=== PATIENT | female | born 1960 | race Caucasian/White ===

== ENCOUNTER 2017-02-15 15:24 | Emergency (ER) | payer BC ==
[2017-02-15] MEDS ORDERED: methylPREDNISolone SUCCINATE 125 MG/2 ML VIAL IVP STA (15:47)
[2017-02-15] MEDS ORDERED: ALBUTEROL NEB 2.5 MG/3 ML INH STA ×2 (15:47→16:46)
[2017-02-15] MEDS ORDERED: ALBUTEROL NEB 2.5 MG/3 ML INH ONE ×2 (15:56→17:03)
[2017-02-15] MEDS ORDERED: methylPREDNISolone SUCCINATE 125 MG/2 ML VIAL IVP ONE (16:08)
[2017-02-15 16:18] LABS: BASOPHILS % (AUTO) 0.1 %; EOSINOPHILS % (AUTO) 0.2 %; HCT - HEMATOCRIT 41.2 % (37.0-47.0); HGB - HEMOGLOBIN 14.1 g/dL (12.0-16.0); LYMPHOCYTES # (AUTO) 0.3 10^3/uL (1.5-3.5); LYMPHOCYTES % (AUTO) 4.1 %; MEAN CORPUSCULAR HEMOGLOBIN 34.5 pg (27.0-31.0); MEAN CORPUSCULAR HGB CONC 34.3 g/dL (32.0-36.0); MEAN CORPUSCULAR VOLUME 100.6 fL (81.0-99.0); MEAN PLATELET VOLUME 9.1 fL (7.9-10.8); MONOCYTES # (AUTO) 0.2 10^3/uL (0.0-1.0); MONOCYTES % (AUTO) 2.5 %; NEUTROPHILS # (AUTO) 5.8 10^3/uL (1.5-6.6); NEUTROPHILS % (AUTO) 93.1 %; RED CELL DISTRIBUTION WIDTH 12.8 % (12.0-15.0); UNCORRECTED WHITE BLOOD COUNT 6.2 x10^3/uL; WHITE BLOOD COUNT 6.2 x10^3/uL (4.8-10.8)
[2017-02-15 16:29] LABS: ALBUMIN/GLOBULIN RATIO 1.7 (1.0-2.2); BILIRUBIN,TOTAL 0.8 mg/dL (0.2-1.0); CALCIUM 9.1 mg/dL (8.5-10.3); CREATININE 0.8 mg/dL (0.4-1.0); POTASSIUM 3.4 mmol/L (3.5-5.0); TOTAL PROTEIN 6.9 g/dL (6.7-8.2)
--- NOTE | 2017-02-15 16:44 | XRAY Preliminary Report ---
Exam: XR Chest 2 View PA/LAT IMPRESSION: Normal 2-view chest radiography. [facility] SITE ID: [id number]
--- NOTE | 2017-02-15 16:51 | XRAY Report ---
EXAM: CHEST RADIOGRAPHY EXAM DATE: 02/15/2017 04:26 PM. CLINICAL HISTORY: Cough, wheezing, shortness of breath. COMPARISON: 03/29/2016. TECHNIQUE: 2 views. FINDINGS: Lungs/Pleura: No focal opacities evident. No pleural effusion. No pneumothorax. Normal volumes. Mediastinum: Heart and mediastinal contours are unremarkable. Other: None. IMPRESSION: Normal 2-view chest radiography. [facility] Referring Provider Line: [phone] SITE ID: [id number]
[2017-02-15 18:08] VITALS: BP 141/67
--- NOTE | 2017-02-15 18:10 | ED Physician Documentation ---
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 No: Fever, Chest pain / discomfort, Palpitations, Diaphoresis, Bilateral edema Similar symptoms before: Diagnosis (asthma) Recently seen: Not recently seen Review of Systems Constitutional: denies: Fever, Chills Respiratory: reports: Dyspnea, Wheezing GI: denies: Abdominal Pain, Nausea, Vomiting, Diarrhea Skin: denies: Rash Musculoskeletal: denies: Neck pain, Back pain Neurologic: denies: Focal weakness, Numbness, Headache PD PAST MEDICAL HISTORY - Past Medical History Cardiovascular: None Respiratory: Asthma Neuro: None Endocrine/Autoimmune: None GI: None : None HEENT: None Psych: None Musculoskeletal: None Derm: None - Past Surgical History 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 - Present Medications Home Medications: Ambulatory Orders Medication Instructions Recorded Confirmed Fluticasone/Salmeterol [Advair 1 each IH BID 08/31/13 02/15/17 500-50 Diskus] Montelukast [Singulair] 10 mg PO QPM 08/31/13 02/15/17 Ipratropium/Albuterol [Duoneb] 3 ml INH Q6H PRN #24 neb 03/26/16 02/15/17 Prednisone 60 mg PO DAILY #15 tablet 02/15/17 - Allergies Allergies/Adverse Reactions: Allergies Allergy/AdvReac Type Severity Reaction Status Date / Time iodine Allergy Severe soa Verified 02/15/17 16:11 shellfish derived Allergy Severe soa Verified 02/15/17 16:11 - Social History Does the pt smoke?: No Smoking Status: Former smoker Does the pt drink ETOH?: Yes ETOH Use: Wine Does the pt have substance abuse?: No - Immunizations Immunizations are current?: No Immunizations: TDAP >10years/unknown - POLST Patient has POLST: No PD ED PE NORMAL - Vitals Vital signs reviewed: Yes - General General: Alert and oriented X 3, No acute distress, Well developed/nourished - HEENT HEENT: PERRL, Moist mucous membranes - Neck Neck: Supple, no meningeal sign - Cardiac Cardiac: RRR, Strong equal pulses - Respiratory Respiratory: No respiratory distress, Other (Audible wheezing. Decreased breath sounds) - Abdomen Abdomen: Soft, Non tender, Non distended - Derm Derm: Warm and dry - Extremities Extremities: No edema, No calf tenderness / cord - Neuro Neuro: Alert and oriented X 3, No motor deficit, No sensory deficit - Psych Psych: Normal mood, Normal affect Results - Vitals Vitals: Vital Signs - 24 hr 02/15/17 02/15/17 02/15/17 15:26 15:47 17:15 Temperature 36.9 C Heart Rate 96 84 97 Respiratory 29 H 18 18 Rate Blood Pressure 164/102 H O2 Saturation 90 L 02/15/17 02/15/17 02/15/17 17:58 18:07 18:15 Temperature Heart Rate 86 101 H 96 Respiratory 18 18 20 Rate Blood Pressure 123/106 H 141/67 H 141/67 H O2 Saturation 93 95 93 Oxygen O2 Source Room air - Labs Labs: Laboratory Tests 02/15/17 02/15/17 16:04 16:04 WBC 6.2 RBC 4.10 L Hgb 14.1 Hct 41.2 MCV 100.6 H MCH 34.5 H MCHC 34.3 RDW 12.8 Plt Count 109 L MPV 9.1 Neut # 5.8 Lymph # 0.3 L [place] # 0.2 Eos # 0.0 Baso # 0.0 Absolute Nucleated RBC 0.00 Nucleated RBCs 0.0 Sodium 140 Potassium 3.4 L Chloride 103 Carbon Dioxide 26 Anion Gap 11.0 BUN 13 Creatinine 0.8 Estimated GFR (MDRD) 74 L Glucose 137 H Calcium 9.1 Total Bilirubin 0.8 AST 42 ALT 50 Alkaline Phosphatase 84 Total Protein 6.9 Albumin 4.3 Globulin 2.6 Albumin/Globulin Ratio 1.7 Lipase 14 L - Rads (name of study) cxr Radiology: Prelim report reviewed, EMP read contemporaneously, See rad report ( Normal 2-view chest radiography. ) PD MEDICAL DECISION MAKING - ED course Complexity details: reviewed results, re-evaluated patient, considered differential, d/w patient, d/w family ED course: Patient is a 56-year-old female who presents to the emergency department with what appears to be an asthma flare. She took steroids prior to arrival, but was given additional steroids here. Improved greatly with nebulizer treatment. Audible wheezing resolved. No hypoxia. 96-97% on room air. She would like to try going home and see how she progresses. is comfortable taking her home. We did discuss observation, but patient and her both declined this. Patient counseled regarding signs and symptoms for which I believe and urgent re-evaluation would be necessary. Patient with good understanding of and agreement to plan and is comfortable going home at this time This document was made in part using voice recognition software. While efforts are made to proofread this document, sound alike and grammatical errors may occur. Departure - Departure Disposition: 01 Home, Self Care Clinical Impression: Asthma Qualifiers: Asthma severity: unspecified severity Asthma complication type: with acute exacerbation Qualified Code(s): J45.901 - Unspecified asthma with (acute) exacerbation Condition: Good Instructions: ED Reactive Airway Disease Follow-Up: Darcy Patricio ARNP [Primary Care Provider] - Within 1 week Prescriptions: Prednisone 60 mg PO DAILY #15 tablet Comments: Return if you worsen. Forms: Activity restrictions Discharge Date/Time: 02/15/17 18:23
== END 2017-02-15 18:23 | disposition home or self-care (01) ==
LOC: ED 15:24
DX: J45.901 Unspecified asthma with (acute) exacerbation (principal); Z87.891 Personal history of nicotine dependence
CPT/HCPCS: 36415; 71020; 80053; 83690; 85025; 94640; 96374; 99283; J7613

== ENCOUNTER 2017-07-13 16:46 | Outpatient (CLI) | payer BC | END 2017-07-13 16:47 | disposition critical access hospital (66) | LOC: EMS 16:46 | PROVIDERS: ATTEND Surgery | DX: R06.02 Shortness of breath (principal); R05 Cough ==

== ENCOUNTER 2017-07-13 17:09 | Emergency (ER) | payer BC ==
--- NOTE | 2017-07-13 17:18 | ED Physician Documentation ---
PD HPI DYSPNEA - Stated complaint Stated Complaint: SOA - Chief complaint Chief Complaint: Resp - History obtained from History obtained from: Patient - History of Present Illness Timing - onset: How many days ago (1-2) Timing - onset during: Light activity Timing - duration: Days Inciting event(s): URI (some cough) Improved by: Inhaler/neb (but not this afternoon) Associated symptoms: Cough, Wheezing, Chest pain / discomfort (with cough). No : Fever, Palpitations, Bilateral edema Similar symptoms before: Diagnosis (asthma) Review of Systems Ten Systems: 10 systems reviewed and negative Constitutional: reports: Myalgias. denies: Fever, Chills Nose: reports: Congestion Cardiac: reports: Chest pain / pressure. 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 - Present Medications Home Medications: Ambulatory Orders Medication Instructions Recorded Confirmed Fluticasone/Salmeterol [Advair 1 each IH BID 08/31/13 07/14/17 500-50 Diskus] Montelukast [Singulair] 10 mg PO QPM 08/31/13 07/14/17 Ipratropium/Albuterol [Duoneb] 3 ml INH Q6H PRN #24 neb 03/26/16 07/14/17 Cephalexin [Keflex] 500 mg PO TID #18 capsule 07/13/17 07/14/17 Dexamethasone [Decadron] 4 mg PO BID #10 tablet 07/13/17 07/14/17 Ipratropium [Atrovent] 0.5 mg INH Q6H #30 neb 07/13/17 07/14/17 Magnesium Oxide [Mag Ox] 400 mg PO BID #20 tablet 07/13/17 07/14/17 Prednisone 20 mg PO DAILY 07/13/17 07/14/17 - Allergies Allergies/Adverse Reactions: Allergies Allergy/AdvReac Type Severity Reaction Status Date / Time iodine Allergy Severe soa Verified 07/14/17 06:18 shellfish derived Allergy Severe soa Verified 07/14/17 06:18 - Social History Does the pt smoke?: No Smoking Status: Former smoker Does the pt drink ETOH?: Yes Does the pt have substance abuse?: No - Immunizations Immunizations are current?: No Immunizations: TDAP >10years/unknown - POLST Patient has POLST: No PD ED PE NORMAL - Vitals Vital signs reviewed: Yes - General General: Alert and oriented X 3, Well developed/nourished, Other (working breathing but can talk sentences) - Cardiac Cardiac: No murmur. No: RRR (tachycardic but regular) - Respiratory Respiratory: No: Clear bilaterally (wheezing and tight) - Abdomen Abdomen: Soft, Non tender - Back Back: No CVA TTP - Derm Derm: Normal color, Warm and dry, No rash - Extremities Extremities: No deformity, No tenderness to palpate, No edema, No calf tenderness / cord - Neuro Neuro: Alert and oriented X 3, No motor deficit, Normal speech - Psych Psych: Normal mood Results - Vitals Vitals: Vital Signs - 24 hr 07/13/17 07/13/17 07/13/17 17:12 18:33 18:35 Temperature 36.9 C Heart Rate 177 H 99 98 Respiratory 24 18 17 Rate Blood Pressure 157/88 H 144/89 H O2 Saturation 97 96 07/13/17 07/13/17 19:20 19:51 Temperature Heart Rate 89 96 Respiratory 18 20 Rate Blood Pressure 143/90 H O2 Saturation 94 Oxygen O2 Source Room air - Labs Labs: Laboratory Tests 07/13/17 07/13/17 18:02 18:02 WBC 8.8 RBC 4.11 L Hgb 14.1 Hct 41.4 MCV 100.8 H MCH 34.4 H MCHC 34.1 RDW 12.5 Plt Count 111 L MPV 8.4 Neut # 8.2 H Lymph # 0.3 L [place] # 0.3 Eos # 0.1 Baso # 0.1 Absolute Nucleated RBC 0.00 Nucleated RBC % 0.0 Sodium 140 Potassium 3.3 L Chloride 105 Carbon Dioxide 25 Anion Gap 10.0 BUN 17 Creatinine 0.9 Estimated GFR (MDRD) 65 L Glucose 170 H Calcium 8.8 Total Bilirubin 0.5 AST 33 ALT 31 Alkaline Phosphatase 90 Total Protein 6.6 L Albumin 4.1 Globulin 2.5 Albumin/Globulin Ratio 1.6 Lipase 24 - Rads (name of study) chest Radiology: Prelim report reviewed (no infiltrates) PD MEDICAL DECISION MAKING - ED course Complexity details: reviewed old records, reviewed results, re-evaluated patient (improved with several meds and she prefers trying to go home. has nebulizer there.), considered differential, d/w patient Departure - Departure Disposition: Home, Self Care Clinical Impression: Upper respiratory tract infection Qualifiers: URI type: unspecified URI Qualified Code(s): J06.9 - Acute upper respiratory infection, unspecified Exacerbation of asthma Qualifiers: Asthma severity: mild Asthma persistence: intermittent Qualified Code(s): J45.21 - Mild intermittent asthma with (acute) exacerbation Condition: Stable Record reviewed to determine appropriate education?: Yes Instructions: ED Upper Resp Infec Abx Tx, ED Bronchitis Asthmatic Follow-Up: Darcy Patricio ARNP [Primary Care Provider] - Prescriptions: Cephalexin [Keflex] 500 mg PO TID #18 capsule Dexamethasone [Decadron] 4 mg PO BID #10 tablet Ipratropium [Atrovent] 0.5 mg INH Q6H #30 neb Magnesium Oxide [Mag Ox] 400 mg PO BID #20 tablet Comments: Continue your albuterol nebulizers at home 4 times a day and can add the ipratropium (Atrovent) with it as well. Additionally he can add extra albuterol and nebulizers if needed for wheezes. Use the Decadron steroid daily for 5 more days. Take cephalexin antibiotic for concern of bacterial infection as directed. Use the magnesium as a smooth muscle relaxant twice daily for the next week as well to see if it's complements with your inhalers to reduce the wheezing. Return if worse again. Recheck with your primary care if not improved over the next several days. Discharge Date/Time: 07/13/17 19:57
[2017-07-13] MEDS ORDERED: KETOROLAC 60 MG/2 ML VIAL IVP STA (17:55)
[2017-07-13] MEDS ORDERED: DEXAMETHASONE 10 MG/ML VIAL IVP STA (17:55)
[2017-07-13] MEDS ORDERED: IPRATROPIUM/ALBUTEROL 3 ML NEB INH STA (17:55)
[2017-07-13] MEDS ORDERED: MAGNESIUM SULFATE 2 GRAM 2 GM/50 ML BAG IV ONE ×2 (17:55→18:21)
[2017-07-13] MEDS ORDERED: KETOROLAC 60 MG/2 ML VIAL ONE (18:20)
[2017-07-13] MEDS ORDERED: DEXAMETHASONE 10 MG/ML VIAL ONE (18:20)
[2017-07-13] MEDS ORDERED: SODIUM CHLORIDE FLUSH 0.9% 10 ML SYRINGE IVP ONE (18:22)
[2017-07-13 18:27] LABS: ALBUMIN/GLOBULIN RATIO 1.6 (1.0-2.2); BILIRUBIN,TOTAL 0.5 mg/dL (0.2-1.0); CALCIUM 8.8 mg/dL (8.5-10.3); CREATININE 0.9 mg/dL (0.4-1.0); POTASSIUM 3.3 mmol/L (3.5-5.0); TOTAL PROTEIN 6.6 g/dL (6.7-8.2)
[2017-07-13 18:35] LABS: BASOPHILS # (AUTO) 0.1 10^3/uL (0.0-0.1); BASOPHILS % (AUTO) 0.7 %; EOSINOPHILS # (AUTO) 0.1 10^3/uL (0.0-0.7); EOSINOPHILS % (AUTO) 0.6 %; HCT - HEMATOCRIT 41.4 % (37.0-47.0); HGB - HEMOGLOBIN 14.1 g/dL (12.0-16.0); LYMPHOCYTES # (AUTO) 0.3 10^3/uL (1.5-3.5); LYMPHOCYTES % (AUTO) 3.3 %; MEAN CORPUSCULAR HEMOGLOBIN 34.4 pg (27.0-31.0); MEAN CORPUSCULAR HGB CONC 34.1 g/dL (32.0-36.0); MEAN CORPUSCULAR VOLUME 100.8 fL (81.0-99.0); MEAN PLATELET VOLUME 8.4 fL (7.9-10.8); MONOCYTES # (AUTO) 0.3 10^3/uL (0.0-1.0); MONOCYTES % (AUTO) 2.9 %; NEUTROPHILS # (AUTO) 8.2 10^3/uL (1.5-6.6); NEUTROPHILS % (AUTO) 92.5 %; RED BLOOD COUNT 4.11 10^6/uL (4.20-5.40); RED CELL DISTRIBUTION WIDTH 12.5 % (12.0-15.0); UNCORRECTED WHITE BLOOD COUNT 8.8 x10^3/uL; WHITE BLOOD COUNT 8.8 x10^3/uL (4.8-10.8)
[2017-07-13] MEDS ORDERED: IPRATROPIUM/ALBUTEROL 3 ML NEB INH ONE (18:39)
[2017-07-13] MEDS ORDERED: ALBUTEROL NEB 2.5 MG/3 ML INH STA (19:10)
[2017-07-13] MEDS ORDERED: ALBUTEROL NEB 2.5 MG/3 ML INH ONE (19:25)
--- NOTE | 2017-07-13 19:26 | XRAY Preliminary Report ---
Exam: XR CHEST 2 VIEW PA/LAT IMPRESSION: Normal 2-view chest radiography. [facility] SITE ID: [id number]
--- NOTE | 2017-07-13 19:30 | XRAY Report ---
EXAM: CHEST RADIOGRAPHY EXAM DATE: 07/13/2017 07:11 PM. CLINICAL HISTORY: Wheeze and chest pain. COMPARISON: 02/15/2017. TECHNIQUE: 2 views. FINDINGS: Lungs/Pleura: No focal opacities evident. No pleural effusion. No pneumothorax. Normal volumes. Mediastinum: Heart and mediastinal contours are unremarkable. Other: None. IMPRESSION: Normal 2-view chest radiography. [facility] Referring Provider Line: [phone] SITE ID: [id number]
[2017-07-13] MEDS ORDERED: BENZONATATE 100 MG CAPSULE PO STA (19:38)
[2017-07-13] MEDS ORDERED: BENZONATATE 100 MG CAPSULE PO ONE (19:47)
[2017-07-13 19:52] VITALS: BP 143/90
== END 2017-07-13 19:57 | disposition home or self-care (01) ==
LOC: EDUNIT# → ED 17:09
DX: J06.9 Acute upper respiratory infection, unspecified (principal); J45.21 Mild intermittent asthma with (acute) exacerbation; Z87.891 Personal history of nicotine dependence
CPT/HCPCS: 36415; 71020; 80053; 83690; 85025; 94640; 96365; 96375; 99284; A9270; J7613; J7620; 94664

== ENCOUNTER 2017-07-14 05:46 | Outpatient (CLI) | payer BC | END 2017-07-14 05:47 | disposition critical access hospital (66) | LOC: EMS 05:46 | PROVIDERS: ATTEND Surgery | DX: R06.00 Dyspnea, unspecified (principal) | CPT/HCPCS: A0425; A0427 ==

== ENCOUNTER 2017-07-14 06:13 | Emergency (ER) | payer BC ==
[2017-07-14] MEDS ORDERED: ALBUTEROL NEB 2.5 MG/3 ML INH STA (06:26)
[2017-07-14] MEDS ORDERED: ALBUTEROL NEB 2.5 MG/3 ML INH ONE (06:32)
[2017-07-14] MEDS ORDERED: DEXAMETHASONE 10 MG/ML VIAL IVP STA (07:26)
[2017-07-14] MEDS ORDERED: cefTRIAXone 1 GM in SODIUM CHLORIDE 0.9% MINIBAG 100 ML IV STA (07:26)
[2017-07-14] MEDS ORDERED: SODIUM CHLORIDE 0.9% 1,000 ML IV ONE (07:26)
--- NOTE | 2017-07-14 07:29 | ED Physician Documentation ---
PD HPI DYSPNEA - Stated complaint Stated Complaint: SOA - Chief complaint Chief Complaint: Resp - History obtained from History obtained from: Patient, EMS - History of Present Illness Timing - onset: How many days ago (2) Timing - onset during: Rest Timing - duration: Days (2) Timing - details: Gradual onset, Still present Inciting event(s): URI Improved by: O2, Inhaler/neb Worsened by: Exertion, Coughing Associated symptoms: Cough, Wheezing, Anxiety Similar symptoms before: Diagnosis (asthma exacerbation) Recently seen: Emergency Dept (Seen here last night.) - Additional information Additional information: 56-year-old female seen in the emergency department last night for an asthma exacerbation was not able to fill her medicines last night and awoke about 5 AM with acute shortness of breath and this was bad enough that she drove herself back down to the medic station and was transported the hospital by paramedics.She received a DuoNeb treatment in route with some improvement.She has had exacerbation of asthma previously and required admission to the hospital last year. Last night in the emergency department she felt that she had a marked improvement with the use of magnesium given by vein. 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 - Present Medications Home Medications: Ambulatory Orders Medication Instructions Recorded Confirmed Fluticasone/Salmeterol [Advair 1 each IH BID 08/31/13 07/14/17 500-50 Diskus] Montelukast [Singulair] 10 mg PO QPM 08/31/13 07/14/17 Ipratropium/Albuterol [Duoneb] 3 ml INH Q6H PRN #24 neb 03/26/16 07/14/17 Cephalexin [Keflex] 500 mg PO TID #18 capsule 07/13/17 07/14/17 Dexamethasone [Decadron] 4 mg PO BID #10 tablet 07/13/17 07/14/17 Ipratropium [Atrovent] 0.5 mg INH Q6H #30 neb 07/13/17 07/14/17 Magnesium Oxide [Mag Ox] 400 mg PO BID #20 tablet 07/13/17 07/14/17 Prednisone 20 mg PO DAILY 07/13/17 07/14/17 - Allergies Allergies/Adverse Reactions: Allergies Allergy/AdvReac Type Severity Reaction Status Date / Time iodine Allergy Severe soa Verified 07/14/17 06:18 shellfish derived Allergy Severe soa Verified 07/14/17 06:18 - Social History Does the pt smoke?: No Smoking Status: Never smoker Does the pt drink ETOH?: Yes Does the pt have substance abuse?: No - Immunizations Immunizations are current?: No Immunizations: TDAP >10years/unknown - POLST Patient has POLST: No PD ED PE NORMAL - Vitals Vital signs reviewed: Yes (Tachycardic and hypertensive) - General General: Alert and oriented X 3, Well developed/nourished, Other (The patient has an audible wheeze and is tachypneic she is alert and cooperative.) - HEENT HEENT: Atraumatic, PERRL, EOMI, Other (The right TM is markedly inflamed with rounding of the landmarks the left is with minimal inflammation.) - Neck Neck: Supple, no meningeal sign, No bony TTP - Cardiac Cardiac: No murmur, Other (Tachycardic) - Respiratory Respiratory: Other (Tachypneic with audible wheeze and diminished breath sounds bilaterally with scattered wheezes.) - Abdomen Abdomen: Soft, Non tender - Back Back: No CVA TTP, No spinal TTP - Derm Derm: Normal color, Warm and dry, No rash - Extremities Extremities: No deformity, No edema - Neuro Neuro: No motor deficit, No sensory deficit - Psych Psych: Normal mood, Normal affect Results - Vitals Vitals: Vital Signs - 24 hr 07/14/17 07/14/17 07/14/17 06:16 06:42 09:30 Temperature 37.3 C 36.9 C Heart Rate 133 H 122 H 109 H Respiratory 22 20 17 Rate Blood Pressure 169/100 H 165/85 H 148/86 H O2 Saturation 93 97 97 07/14/17 10:42 Temperature Heart Rate 107 H Respiratory 22 Rate Blood Pressure O2 Saturation 95 Oxygen O2 Source Room air - Labs Labs: Laboratory Tests 07/14/17 07/14/17 07/14/17 08:25 08:25 08:25 WBC 7.7 RBC 3.98 L Hgb 13.8 Hct 39.4 MCV 99.0 MCH 34.8 H MCHC 35.1 RDW 12.5 Plt Count 117 L MPV 8.4 Neut # 7.5 H Lymph # 0.2 L [place] # 0.1 Eos # 0.0 Baso # 0.0 Absolute Nucleated RBC 0.00 Nucleated RBC % 0.0 Sodium 141 Potassium 3.2 L Chloride 105 Carbon Dioxide 23 Anion Gap 13.0 BUN 12 Creatinine 0.8 Estimated GFR (MDRD) 74 L Glucose 183 H Calcium 9.4 Total Bilirubin 0.6 AST 25 ALT 32 Alkaline Phosphatase 86 Troponin I < 0.04 B-Natriuretic Peptide Total Protein 6.6 L Albumin 4.0 Globulin 2.6 Albumin/Globulin Ratio 1.5 Lipase 18 L 07/14/17 08:25 WBC RBC Hgb Hct MCV MCH MCHC RDW Plt Count MPV Neut # Lymph # [place] # Eos # Baso # Absolute Nucleated RBC Nucleated RBC % Sodium Potassium Chloride Carbon Dioxide Anion Gap BUN Creatinine Estimated GFR (MDRD) Glucose Calcium Total Bilirubin AST ALT Alkaline Phosphatase Troponin I B-Natriuretic Peptide 133 H Total Protein Albumin Globulin Albumin/Globulin Ratio Lipase Procedures - IVC sono (time) 0725 Bedside IVC sono: IVC measures (cm) (1.2), IVC collapsed c insp (cm) (complete) , Dehydration PD MEDICAL DECISION MAKING - ED course Complexity details: reviewed old records, reviewed results, re-evaluated patient , considered differential, d/w patient, d/w family ED course: 56-year-old female with exacerbation of asthma was treated in the emergency department last night and released with improvement and has worsening of symptoms 8 hours later. She is found in the emergency department this morning to be tachypneic tachycardic and hypoxic and she is given a DuoNeb treatment and placed on the oxygen. She is found to be dehydrated and has otitis on examination. She is given in addition dexamethasone intravenously a liter of saline and 1 g of Rocephin. She is previously required admission into the hospital and spent about 5 days in the hospital on a similar visit with a repeat visit to the emergency department on the same day. Today she feels confident she will improve further. Departure - Departure Disposition: 01 Home, Self Care Clinical Impression: Acute bronchitis with COPD, Dehydration Otitis media Qualifiers: Otitis media type: suppurative Chronicity: acute Laterality: bilateral Recurrence: not specified as recurrent Spontaneous tympanic membrane rupture: without spontaneous rupture Qualified Code(s): H66.003 - Acute suppurative otitis media without spontaneous rupture of ear drum, bilateral Instructions: ED Bronchitis Asthmatic, ED Dehydration, ED Otitis Media Acute Adult Follow-Up: Darcy Patricio ARNP [Primary Care Provider] - Comments: Fill the prescriptions given to you yesterday by Dr. Beavers. Discharge Date/Time: 07/14/17 11:13
[2017-07-14] MEDS ORDERED: cefTRIAXone 1 GM VIAL ONE (08:33)
[2017-07-14] MEDS ORDERED: DEXAMETHASONE 10 MG/ML VIAL ONE (08:33)
[2017-07-14 08:34] LABS: BASOPHILS % (AUTO) 0.1 %; HCT - HEMATOCRIT 39.4 % (37.0-47.0); HGB - HEMOGLOBIN 13.8 g/dL (12.0-16.0); LYMPHOCYTES # (AUTO) 0.2 10^3/uL (1.5-3.5); LYMPHOCYTES % (AUTO) 2.3 %; MEAN CORPUSCULAR HEMOGLOBIN 34.8 pg (27.0-31.0); MEAN CORPUSCULAR HGB CONC 35.1 g/dL (32.0-36.0); MEAN PLATELET VOLUME 8.4 fL (7.9-10.8); MONOCYTES # (AUTO) 0.1 10^3/uL (0.0-1.0); MONOCYTES % (AUTO) 1.3 %; NEUTROPHILS # (AUTO) 7.5 10^3/uL (1.5-6.6); NEUTROPHILS % (AUTO) 96.3 %; RED BLOOD COUNT 3.98 10^6/uL (4.20-5.40); RED CELL DISTRIBUTION WIDTH 12.5 % (12.0-15.0); UNCORRECTED WHITE BLOOD COUNT 7.7 x10^3/uL; WHITE BLOOD COUNT 7.7 x10^3/uL (4.8-10.8)
[2017-07-14] MEDS ORDERED: SODIUM CHLORIDE FLUSH 0.9% 10 ML SYRINGE IVP ONE ×2 (08:38)
[2017-07-14 08:47] LABS: ALBUMIN/GLOBULIN RATIO 1.5 (1.0-2.2); BILIRUBIN,TOTAL 0.6 mg/dL (0.2-1.0); CALCIUM 9.4 mg/dL (8.5-10.3); CREATININE 0.8 mg/dL (0.4-1.0); POTASSIUM 3.2 mmol/L (3.5-5.0); TOTAL PROTEIN 6.6 g/dL (6.7-8.2)
[2017-07-14 09:31] VITALS: BP 148/86
[2017-07-14] MEDS ORDERED: POTASSIUM BICARB 25 MEQ TABLET PO STA (09:38)
[2017-07-14] MEDS ORDERED: POTASSIUM BICARB 25 MEQ TABLET PO ONE (10:04)
== END 2017-07-14 11:13 | disposition home or self-care (01) ==
LOC: EDUNIT# → ED 06:13
DX: J20.9 Acute bronchitis, unspecified (principal); J44.0 Chronic obstructive pulmonary disease with (acute) lower respiratory infection; E86.0 Dehydration; H66.003 Acute suppurative otitis media without spontaneous rupture of ear drum, bilateral; R09.02 Hypoxemia; R00.0 Tachycardia, unspecified; R06.82 Tachypnea, not elsewhere classified
CPT/HCPCS: 36415; 80053; 83690; 83880; 84484; 85025; 94640; 96361; 96365; 96375; 99284; A9270; J7613

== ENCOUNTER 2017-10-06 08:37 | Outpatient (CLI) | payer BC ==
[2017-10-06 09:31] LABS: BASOPHILS % (AUTO) 1.1 %; EOSINOPHILS # (AUTO) 0.1 10^3/uL (0.0-0.7); HGB - HEMOGLOBIN 14.5 g/dL (12.0-16.0); LYMPHOCYTES # (AUTO) 0.9 10^3/uL (1.5-3.5); LYMPHOCYTES % (AUTO) 32.8 %; MEAN CORPUSCULAR HEMOGLOBIN 34.6 pg (27.0-31.0); MEAN CORPUSCULAR HGB CONC 34.7 g/dL (32.0-36.0); MEAN CORPUSCULAR VOLUME 99.7 fL (81.0-99.0); MONOCYTES # (AUTO) 0.2 10^3/uL (0.0-1.0); MONOCYTES % (AUTO) 7.8 %; NEUTROPHILS # (AUTO) 1.6 10^3/uL (1.5-6.6); NEUTROPHILS % (AUTO) 56.3 %; PLT - PLATELET COUNT 120 10^3/uL (130-450); WHITE BLOOD COUNT 2.8 x10^3/uL (4.8-10.8)
[2017-10-06 09:39] LABS: INR 0.9 (0.8-1.2)
[2017-10-06 09:48] LABS: HB2 TOTAL 15.8 g/dL; HEMOGLOBIN A1C 0.42 g/dL; HEMOGLOBIN A1C % 4.6 % (4.6-6.2)
[2017-10-06 09:51] LABS: % IRON SATURATION 25 % (20-50); ALBUMIN 4.4 g/dL (3.2-5.5); ALBUMIN/GLOBULIN RATIO 1.8 (1.0-2.2); ALKALINE PHOSPHATASE 71 IU/L (42-121); ALT ALANINE AMINOTRANSFERASE 25 IU/L (10-60); AST ASPARTATE AMINOTRANSFERASE 27 IU/L (10-42); BILIRUBIN,TOTAL 0.4 mg/dL (0.2-1.0); BUN - BLOOD UREA NITROGEN 13 mg/dL (6-20); CALCIUM 9.1 mg/dL (8.5-10.3); CARBON DIOXIDE - CO2 24 mmol/L (21-32); CHLORIDE 108 mmol/L (101-111); CHOL/HDL RATIO 3.6 (<4.4); CHOLESTEROL 275 mg/dL; CREATININE 0.8 mg/dL (0.4-1.0); GFR - MDRD 74 (>89); GLUCOSE 104 mg/dL (70-100); HDL CHOLESTEROL 77 mg/dL; IRON 79 ug/dL (28-170); LDL CHOLESTEROL,CALCULATED 164 mg/dL; LDL/HDL RATIO 2.1 (<4.4); SODIUM 143 mmol/L (135-145); TOTAL IRON BINDING CAPACITY 315 ug/dL (250-450); TOTAL PROTEIN 6.8 g/dL (6.7-8.2); TRANSFERRIN 225 mg/dL (192-382); VLDL CHOLESTEROL 34 mg/dL
[2017-10-06 09:54] LABS: PLATELET ESTIMATE, MANUAL DECREASED (<130,000) (NORMAL); PLATELET MORPHOLOGY NORMAL APPEARANCE (NORMAL); RBC MORPHOLOGY (MULTIPLE) NORMAL APPEARANCE (NORMAL)
[2017-10-06 10:01] LABS: THYROID STIMULATING HORMONE 0.81 uIU/mL (0.34-5.60)
[2017-10-06 10:08] LABS: FERRITIN 127.1 ng/mL (11.0-306.8)
[2017-10-06 10:12] LABS: FOLATE 4.06 ng/mL (5.90 - >24.8)
== END 2017-10-06 08:38 | disposition home or self-care (01) ==
LOC: LAB 08:37
PROVIDERS: ATTEND Surgery
DX: Z01.812 Encounter for preprocedural laboratory examination (principal); E46 Unspecified protein-calorie malnutrition; E63.9 Nutritional deficiency, unspecified
CPT/HCPCS: 36415; 80053; 80061; 82306; 82607; 82728; 82746; 83036; 83540; 84425; 84443; 84466; 84481; 85025; 85610; 85730

== ENCOUNTER 2017-10-25 14:38 | Outpatient (CLI) | payer BC | END 2017-10-25 14:39 | disposition home or self-care (01) | LOC: RT 14:38 | PROVIDERS: ATTEND Surgery | DX: R01.1 Cardiac murmur, unspecified (principal) | CPT/HCPCS: 93005 ==

== ENCOUNTER 2017-10-29 14:14 | Outpatient (CLI) | payer BC | END 2017-10-29 14:15 | disposition home or self-care (01) | LOC: SC 14:14 | PROVIDERS: ATTEND Internal Medicine Pulmonary Disease | DX: G47.10 Hypersomnia, unspecified (principal); G47.8 Other sleep disorders; R06.83 Snoring | CPT/HCPCS: 99203; 99212 ==

== ENCOUNTER 2017-11-15 08:32 | Day surgery (SDC) | payer BC ==
[2017-11-15] MEDS ORDERED: LACTATED RINGERS 1,000 ML IV ONE ×2 (09:11→11:16)
[2017-11-15] MEDS ORDERED: fentaNYL 100 MCG/2 ML VIAL IVP ONE (10:36)
[2017-11-15] MEDS ORDERED: MIDAZOLAM 2 MG/2 ML VIAL IVP ONE (10:36)
[2017-11-15] MEDS ORDERED: BENZOCAINE/TETRACAINE/BUTAMBEN SPRAY 56 GM TOP ONE (10:42)
[2017-11-15 11:34] VITALS: BP 143/80
== END 2017-11-15 08:33 | disposition home or self-care (01) ==
LOC: SDS 08:32
PROVIDERS: ATTEND Surgery
PROC: 0DB68ZX Excision of Stomach, Via Natural or Artificial Opening Endoscopic, Diagnostic (ICD-10-PCS; 2017-11-15)
PROC: 0DBM8ZZ Excision of Descending Colon, Via Natural or Artificial Opening Endoscopic (ICD-10-PCS; principal; 2017-11-15 09:45)
PROC: 0DBN8ZZ Excision of Sigmoid Colon, Via Natural or Artificial Opening Endoscopic (ICD-10-PCS; 2017-11-15 09:45)
DX: Z12.11 Encounter for screening for malignant neoplasm of colon (principal); D12.5 Benign neoplasm of sigmoid colon; D12.4 Benign neoplasm of descending colon; K57.30 Diverticulosis of large intestine without perforation or abscess without bleeding; K64.8 Other hemorrhoids; K25.9 Gastric ulcer, unspecified as acute or chronic, without hemorrhage or perforation; R13.10 Dysphagia, unspecified; K21.9 Gastro-esophageal reflux disease without esophagitis; R10.9 Unspecified abdominal pain; E66.9 Obesity, unspecified; Z68.37 Body mass index [BMI] 37.0-37.9, adult; Z87.891 Personal history of nicotine dependence; R19.5 Other fecal abnormalities; R06.00 Dyspnea, unspecified; I10 Essential (primary) hypertension; J45.909 Unspecified asthma, uncomplicated; R01.1 Cardiac murmur, unspecified
CPT/HCPCS: 43239; 45380; A9270; J7120

== ENCOUNTER 2017-12-17 14:35 | Outpatient (CLI) | payer BC | END 2017-12-17 14:36 | disposition home or self-care (01) | LOC: SC 14:35 | PROVIDERS: ATTEND Internal Medicine Pulmonary Disease | DX: G47.10 Hypersomnia, unspecified (principal); E66.9 Obesity, unspecified | CPT/HCPCS: 99212; 99213 ==

== ENCOUNTER 2018-01-15 17:03 | Outpatient (CLI) | payer BC ==
--- NOTE | 2018-01-16 10:07 | XRAY Report ---
THREE VIEW RIGHT FOOT: 01/15/2018 CLINICAL INDICATION: Contusion, pain. FINDINGS: AP, lateral, oblique views of the right foot demonstrate a mildly displaced fracture of the proximal phalanx of the second toe, without evidence of intraarticular extension. Degenerative changes are seen in the midfoot joints, and an os naviculare is incidentally noted. Posterior calcaneal spurring is present. IMPRESSION: MINIMALLY DISPLACED FRACTURE OF THE PROXIMAL PHALANX OF THE SECOND TOE. TD: 01/16/2018 10:05
== END 2018-01-15 17:04 | disposition home or self-care (01) ==
LOC: DI 17:03
PROVIDERS: ATTEND Registered Nurse
DX: S92.511A Displaced fracture of proximal phalanx of right lesser toe(s), initial encounter for closed fracture (principal)

== ENCOUNTER 2018-06-14 14:47 | Emergency (ER) | payer BC ==
[2018-06-14] MEDS ORDERED: IBUPROFEN 800 MG TABLET PO STA (15:22)
--- NOTE | 2018-06-14 15:25 | ED Physician Documentation ---
PD HPI UPPER EXT INJURY - Stated complaint Stated Complaint: WRIST INJURY - Chief complaint Chief Complaint: Trauma Ext - History obtained from History obtained from: Patient - History of Present Illness Location: Right, Wrist Type of injury: Fall Where injury occurred: Street Timing - onset: How many hours ago (<1) Worsened by: Moving, Palpating - Additonal information Additional information: The patient is a 57-year-old female who tripped on the edge of the sidewalk impacting her right wrist against the cement less than 1 hour prior to arrival. She presents now with pain at the ulnar aspect of her right wrist. She denies any other injuries. She is right-hand dominant. Review of Systems Constitutional: denies: Fever Respiratory: denies: Cough Skin: denies: Rash, Abrasion (s) Musculoskeletal: reports: Joint pain (right wrist). denies: Neck pain, Back pain Neurologic: denies: Focal weakness, Numbness, Head injury PD PAST MEDICAL HISTORY - Past Medical History Past Medical History: Yes Cardiovascular: None Respiratory: Asthma Endocrine/Autoimmune: None GI: GERD : None HEENT: None Psych: None Musculoskeletal: None Derm: None - Past Surgical History Past Surgical History: Yes /[employer]: Tubal ligation - Present Medications Home Medications: Ambulatory Orders Medication Instructions Recorded Confirmed Fluticasone/Salmeterol [Advair 1 each IH BID 08/31/13 07/14/17 500-50 Diskus] Montelukast [Singulair] 10 mg PO QPM 08/31/13 07/14/17 Ipratropium/Albuterol [Duoneb] 3 ml INH Q6H PRN #24 neb 03/26/16 07/14/17 Lisinopril 20 mg PO 11/15/17 Omeprazole [PriLOSEC] 20 mg PO DAILY 11/15/17 11/15/17 - Allergies Allergies/Adverse Reactions: Allergies Allergy/AdvReac Type Severity Reaction Status Date / Time iodine Allergy Severe soa Verified 06/14/18 14:58 shellfish derived Allergy Severe soa Verified 06/14/18 14:58 - Social History Does the pt smoke?: No Smoking Status: Never smoker Does the pt drink ETOH?: Yes Does the pt have substance abuse?: No - Immunizations Immunizations are current?: No Immunizations: TDAP >10years/unknown - POLST Patient has POLST: No PD ED PE NORMAL - Vitals Vital signs reviewed: Yes (hypertensive) - General General: Alert and oriented X 3, Well developed/nourished - HEENT HEENT: Atraumatic - Respiratory Respiratory: No respiratory distress - Derm Derm: No rash - Extremities Extremities: Other (There is a 2 cm area of ecchymosis on the volar ulnar aspect of the right wrist, with associated tenderness to palpation. There is no tenderness at the radial aspect of the wrist. Distal neurovascular is intact.) - Neuro Neuro: Alert and oriented X 3, No motor deficit, No sensory deficit Results - Vitals Vitals: Oxygen O2 Source Room air - Rads (name of study) Right wrist Radiology: Prelim report reviewed, EMP read contemporaneously, See rad report (Negative wrist radiography.) PD MEDICAL DECISION MAKING - ED course Complexity details: reviewed results, re-evaluated patient, considered differential, d/w patient, d/w family ED course: The patient's presentation is most consistent with contusion to the ulnar aspect of the right wrist. There is no evidence of bony abnormality on radiographic imaging of the wrist. Treatment in the emergency department included administration of ibuprofen and milligrams orally, and application of a Velcro wrist splint. I discussed with her the expected course of injury, symptomatic treatment and outpatient follow-up, as well as potentially worrisome signs or symptoms that should prompt reevaluation in the emergency department. - Sepsis Event Vital Signs: Oxygen O2 Source Room air Departure - Departure Disposition: 01 Home, Self Care Clinical Impression: Contusion of right wrist Qualifiers: Encounter type: initial encounter Qualified Code(s): S60.211A - Contusion of right wrist, initial encounter Condition: Stable Instructions: ED Contusion Upper Ext Follow-Up: Darcy Patricio ARNP [Primary Care Provider] - Comments: Keep your right hand elevated as much the time as possible. Use the wrist splint if it provides comfort. Apply ice pack intermittently for the first 3 days. You can use ibuprofen, up to 800 mg 3 times daily, for its anti-inflammatory effect. Up with your primary physician if not improving within 1-2 weeks. Return to the emergency department if increasing pain or swelling, or otherwise worsening symptoms Discharge Date/Time: 06/14/18 15:59
--- NOTE | 2018-06-14 15:37 | XRAY Report ---
Reason: Pain, swelling right wrist since falling. Procedure Date: 06/14/2018 Accession Number: [id number] / [id number] Procedure: XR - Wrist 3 View RT CPT Code: FULL RESULT: EXAM: RIGHT WRIST RADIOGRAPHY EXAM DATE: 06/14/2018 03:18 PM. CLINICAL HISTORY: Pain, swelling right wrist since falling. COMPARISON: None. TECHNIQUE: 3 views. FINDINGS: Bones: No fractures or bone lesions. Joints: No subluxations. Soft Tissues: No soft tissue swelling. IMPRESSION: Negative wrist radiography. RADIA
[2018-06-14 15:54] VITALS: BP 158/100
== END 2018-06-14 15:59 | disposition home or self-care (01) ==
LOC: ED 14:47
DX: S60.211A Contusion of right wrist, initial encounter (principal); W01.198A Fall on same level from slipping, tripping and stumbling with subsequent striking against other object, initial encounter; Y92.480 Sidewalk as the place of occurrence of the external cause
CPT/HCPCS: 73110; 99283; A9270

== ENCOUNTER 2019-10-18 08:44 | Outpatient (CLI) | payer BC ==
[2019-10-18 09:32] LABS: BASOPHILS # (AUTO) 0.1 10^3/uL (0.0-0.1); BASOPHILS % (AUTO) 1.3 %; EOSINOPHILS # (AUTO) 0.1 10^3/uL (0.0-0.7); EOSINOPHILS % (AUTO) 1.8 %; HGB - HEMOGLOBIN 14.3 g/dL (12.0-16.0); LYMPHOCYTES % (AUTO) 25.8 %; MEAN CORPUSCULAR HEMOGLOBIN 33.3 pg (27.0-31.0); MEAN CORPUSCULAR HGB CONC 33.6 g/dL (32.0-36.0); MEAN CORPUSCULAR VOLUME 99.1 fL (81.0-99.0); MEAN PLATELET VOLUME 10.1 fL (7.9-10.8); MONOCYTES # (AUTO) 0.3 10^3/uL (0.0-1.0); MONOCYTES % (AUTO) 7.6 %; NEUTROPHILS # (AUTO) 2.4 10^3/uL (1.5-6.6); NEUTROPHILS % (AUTO) 63.2 %; PLT - PLATELET COUNT 142 10^3/uL (130-450); RED BLOOD COUNT 4.29 10^6/uL (4.20-5.40); RED CELL DISTRIBUTION WIDTH 13.2 % (12.0-15.0); WHITE BLOOD COUNT 3.8 x10^3/uL (4.8-10.8)
[2019-10-18 09:50] LABS: ALBUMIN 4.4 g/dL (3.2-5.5); ALBUMIN/GLOBULIN RATIO 1.8 (1.0-2.2); ALKALINE PHOSPHATASE 56 IU/L (42-121); ALT ALANINE AMINOTRANSFERASE 23 IU/L (10-60); AST ASPARTATE AMINOTRANSFERASE 21 IU/L (10-42); BILIRUBIN,TOTAL 0.8 mg/dL (0.2-1.0); BUN - BLOOD UREA NITROGEN 18 mg/dL (6-20); CALCIUM 9.4 mg/dL (8.5-10.3); CARBON DIOXIDE - CO2 25 mmol/L (21-32); CHLORIDE 106 mmol/L (101-111); CHOL/HDL RATIO 3.7 (<4.4); CHOLESTEROL 250 mg/dL; CREATININE 0.7 mg/dL (0.4-1.0); GFR - MDRD 86 (>89); GLUCOSE 104 mg/dL (70-100); HDL CHOLESTEROL 68 mg/dL; LDL CHOLESTEROL,CALCULATED 164 mg/dL; LDL/HDL RATIO 2.4 (<4.4); SODIUM 140 mmol/L (135-145); TOTAL PROTEIN 6.9 g/dL (6.7-8.2); VLDL CHOLESTEROL 18 mg/dL
== END 2019-10-18 08:45 | disposition home or self-care (01) ==
LOC: LAB 08:44
PROVIDERS: ATTEND Registered Nurse
DX: J45.909 Unspecified asthma, uncomplicated (principal); I10 Essential (primary) hypertension; K21.9 Gastro-esophageal reflux disease without esophagitis; E78.5 Hyperlipidemia, unspecified; D61.818 Other pancytopenia
CPT/HCPCS: 36415; 80053; 80061; 83721; 85025

== ENCOUNTER 2022-09-04 13:39 | Observation (INO) | payer BC, OTHER ==
[2022-09-04] MEDS ORDERED: ALBUTEROL NEB 2.5 MG/3 ML INH ONE (15:31)
[2022-09-04] MEDS ORDERED: IPRATROPIUM/ALBUTEROL 3 ML NEB INH STA (15:32)
[2022-09-04] MEDS ORDERED: ALBUTEROL NEB 2.5 MG/3 ML INH STA (15:32)
[2022-09-04] MEDS ORDERED: MAGNESIUM SULFATE 2 GRAM 2 GM/50 ML BAG IV ONE (15:33)
[2022-09-04] MEDS ORDERED: methylPREDNISolone SUCCINATE 125 MG/2 ML VIAL IVP STA (15:33)
--- NOTE | 2022-09-04 15:35 | ED Physician Documentation ---
PD HPI DYSPNEA - Stated complaint Stated Complaint: ASTHMA,SOA - Chief complaint Chief Complaint: Resp - History obtained from History obtained from: Patient - Additional information Additional information: 62-year-old woman with history of asthma, has been admitted many times and had a 5-day intubation about 6 or 7 years ago for same. Increase shortness of breath for the last 2 days, she was hanging out with some people that were smoking and she thinks that is what triggered it. She has no infectious symptoms. She is had increased work of breathing and yesterday took 20 mg of prednisone and today took 60 mg of prednisone and is not improving. She has a nebulizer at home but feels like it is not doing any good. Denies pedal edema, calf pain. No fevers. Review of Systems Ten Systems: 10 systems reviewed and negative Constitutional: denies: Fever, Chills Throat: reports: Reviewed and negative Cardiac: reports: Reviewed and negative PD PAST MEDICAL HISTORY - Past Medical History Cardiovascular: None Respiratory: Asthma Endocrine/Autoimmune: None GI: GERD : None HEENT: None Psych: None Musculoskeletal: None Derm: None - Past Surgical History Past Surgical History: Yes /[employer]: Tubal ligation - Present Medications Home Medications: Ambulatory Orders Medication Instructions Recorded Confirmed Fluticasone/Salmeterol [Advair 1 each IH BID 08/31/13 07/14/17 500-50 Diskus] Montelukast [Singulair] 10 mg PO QPM 08/31/13 07/14/17 Ipratropium/Albuterol [Duoneb] 3 ml INH Q6H PRN #24 neb 03/26/16 07/14/17 Omeprazole [PriLOSEC] 20 mg PO DAILY 11/15/17 11/15/17 lisinopriL [Lisinopril] 20 mg PO 11/15/17 - Allergies Allergies/Adverse Reactions: Allergies Allergy/AdvReac Type Severity Reaction Status Date / Time iodine Allergy Severe soa Verified 09/04/22 14:00 shellfish derived Allergy Severe soa Verified 09/04/22 14:00 - Social History Does the pt smoke?: No Smoking Status: Never smoker Does the pt drink ETOH?: Yes Does the pt have substance abuse?: No - Immunizations Immunizations are current?: No Immunizations: TDAP >10years/unknown - POLST Patient has POLST: No PD ED PE NORMAL - Vitals Vital signs reviewed: Yes - General General: Alert and oriented X 3, Other (She is in modest respiratory distress and speaking in full albeit short sentences) - Neck Neck: Supple, no meningeal sign, No bony TTP - Cardiac Cardiac: No murmur, Other (Tachycardic but regular) - Respiratory Respiratory: Other (Diffuse inspiratory and expiratory wheezing with tachypnea and decreased breath sounds.) - Abdomen Abdomen: Normal bowel sounds, Soft, Non tender - Back Back: No CVA TTP, No spinal TTP - Derm Derm: Normal color, Warm and dry - Extremities Extremities: No edema, No calf tenderness / cord - Neuro Neuro: Alert and oriented X 3, Normal speech Results - Vitals Vitals: Vital Signs - 24 hr 09/04/22 09/04/22 09/04/22 13:57 14:00 15:46 Temperature 36.9 C Heart Rate 105 H 129 H 124 H Respiratory 20 20 Rate Blood Pressure 172/96 H O2 Saturation 93 If not protocol : Oxygen Flow, liters/minute 09/04/22 09/04/22 09/04/22 17:02 18:24 18:54 Temperature Heart Rate 139 H 118 H Respiratory 24 19 Rate Blood Pressure 167/98 H O2 Saturation 96 If not protocol 2 4 : Oxygen Flow, liters/minute 09/04/22 20:00 Temperature Heart Rate 117 H Respiratory 20 Rate Blood Pressure 160/80 H O2 Saturation 95 If not protocol 2 : Oxygen Flow, liters/minute Oxygen O2 Source Nasal cannula Oxygen Flow Rate 2 - EKG (time done) 1914 Rate: Rate (enter#) (114) Rhythm: Sinus tachycardia [place]: Normal Intervals: Normal GA, Prolonged QT QRS: Normal Ischemia: Normal ST segments - Labs Labs: Laboratory Tests 09/04/22 09/04/22 09/04/22 16:00 16:00 16:00 WBC 5.8 RBC 4.77 Hgb 16.1 H Hct 48.1 H MCV 100.8 H MCH 33.8 H MCHC 33.5 RDW 12.3 Plt Count 117 L MPV 10.5 Neut # (Auto) 5.4 Lymph # (Auto) 0.2 L [place] # (Auto) 0.2 Eos # (Auto) 0.0 Baso # (Auto) 0.0 Absolute Nucleated RBC 0.00 Nucleated RBC % 0.0 VBG pH 7.403 VBG pCO2 41.2 VBG pO2 45.9 VBG HCO3 25.1 VBG Total CO2 26.4 VBG O2 Saturation 84.3 H VBG Base Excess 0.3 Sodium 142 Potassium 3.5 Chloride 104 Carbon Dioxide 23 Anion Gap 15.0 H BUN 16 Creatinine 0.9 Estimated GFR (MDRD) 63 L Glucose 160 H Calcium 9.9 Phosphorus 2.7 Magnesium 2.4 Total Bilirubin 0.8 AST 59 H ALT 63 H Alkaline Phosphatase 91 Total Protein 7.9 Albumin 4.7 Globulin 3.2 Albumin/Globulin Ratio 1.5 Nasal Adenovirus (PCR) Nasal B. parapertussis DNA (PCR) Nasal Coronavir 229E PCR Nasal Coronavir HKU1 PCR Nasal Coronavir NL63 PCR Nasal Coronavir OC43 PCR Nasal Enterovir/Rhinovir PCR Nasal Influ A H1 2008 PCR Nasal Influenza B PCR Nasal Parainfluen 1 PCR Nasal Parainfluen 2 PCR Nasal Parainfluen 3 PCR Nasal Parainfluen 4 PCR Nasal RSV (PCR) Nasal B.pertussis DNA PCR Nasal C.pneumoniae (PCR) Foreign Human Metapneumo PCR Nasal M.pneumoniae (PCR) Nasal SARS-CoV-2 (PCR) 09/04/22 16:04 WBC RBC Hgb Hct MCV MCH MCHC RDW Plt Count MPV Neut # (Auto) Lymph # (Auto) [place] # (Auto) Eos # (Auto) Baso # (Auto) Absolute Nucleated RBC Nucleated RBC % VBG pH VBG pCO2 VBG pO2 VBG HCO3 VBG Total CO2 VBG O2 Saturation VBG Base Excess Sodium Potassium Chloride Carbon Dioxide Anion Gap BUN Creatinine Estimated GFR (MDRD) Glucose Calcium Phosphorus Magnesium Total Bilirubin AST ALT Alkaline Phosphatase Total Protein Albumin Globulin Albumin/Globulin Ratio Nasal Adenovirus (PCR) NOT DETECTED Nasal B. parapertussis DNA (PCR) NOT DETECTED Nasal Coronavir 229E PCR NOT DETECTED Nasal Coronavir HKU1 PCR NOT DETECTED Nasal Coronavir NL63 PCR NOT DETECTED Nasal Coronavir OC43 PCR NOT DETECTED Nasal Enterovir/Rhinovir PCR NOT DETECTED Nasal Influ A H1 2008 PCR DETECTED A Nasal Influenza B PCR NOT DETECTED Nasal Parainfluen 1 PCR NOT DETECTED Nasal Parainfluen 2 PCR NOT DETECTED Nasal Parainfluen 3 PCR NOT DETECTED Nasal Parainfluen 4 PCR NOT DETECTED Nasal RSV (PCR) NOT DETECTED Nasal B.pertussis DNA PCR NOT DETECTED Nasal C.pneumoniae (PCR) NOT DETECTED Foreign Human Metapneumo PCR NOT DETECTED Nasal M.pneumoniae (PCR) NOT DETECTED Nasal SARS-CoV-2 (PCR) NOT DETECTED - Rads (name of study) Single view chest x-ray showing mild atypical pneumonia without other acute findings. Radiology: EMP read contemporaneously PD MEDICAL DECISION MAKING - ED course ED course: 62-year-old woman presents in near extremis with status asthmaticus. She had respiratory distress, and was initially given [id number] 5 nebs, IV magnesium, ketamine (which she did not tolerate well) and IV steroids. She continued to be very wheezy with an oxygen requirement and was on BiPAP for a time. The decision to admit was made at 7 PM on September 04 but note that she will board in the emergency department as the hospital is full and she is currently about third in line for admission. During her stay she was noted to have a chest x- ray showing mild atypical pneumonia and was initially given azithromycin but her standing orders were changed to doxycycline noting a long QT on her EKG, and she was also found to have influenza A and started on Tamiflu. Update 8:21 PM on September 04, worse now with more respiratory distress and back on BiPAP. Supplemental nebs ordered in addition to the as needed's and scheduled once. - Critical Care Time(min): 55 Time Includes: Direct patient care, Review records, Reassess patient, Document care, Coordinate care, Medical consult, Family consult for tn aug Data interpretation: ABG, CXR Procedures included in critical care time: Peripheral IV Procedures excluded from critical care time: EKG Departure - Departure Disposition: 66 [facility] DC/Xfer Clinical Impression: Influenza A Status asthmaticus Qualifiers: Asthma severity: severe Asthma persistence: persistent Qualified Code(s): J45.52 - Severe persistent asthma with status asthmaticus Condition: Serious
[2022-09-04 16:20] LABS: BASOPHILS % (AUTO) 0.3 %; HCT - HEMATOCRIT 48.1 % (37.0-47.0); HGB - HEMOGLOBIN 16.1 g/dL (12.0-16.0); LYMPHOCYTES # (AUTO) 0.2 10^3/uL (1.5-3.5); LYMPHOCYTES % (AUTO) 3.1 %; MEAN CORPUSCULAR HEMOGLOBIN 33.8 pg (27.0-31.0); MEAN CORPUSCULAR HGB CONC 33.5 g/dL (32.0-36.0); MEAN CORPUSCULAR VOLUME 100.8 fL (81.0-99.0); MEAN PLATELET VOLUME 10.5 fL (7.9-10.8); MONOCYTES # (AUTO) 0.2 10^3/uL (0.0-1.0); MONOCYTES % (AUTO) 3.6 %; NEUTROPHILS # (AUTO) 5.4 10^3/uL (1.5-6.6); NEUTROPHILS % (AUTO) 92.7 %; PLT - PLATELET COUNT 117 10^3/uL (130-450); RED BLOOD COUNT 4.77 10^6/uL (4.20-5.40); RED CELL DISTRIBUTION WIDTH 12.3 % (12.0-15.0); VBG HCO3 25.1 mmol/L (23-28); VBG PCO2 41.2 mmHg (41-51); VBG PH 7.403 (7.31-7.41); VBG PO2 45.9 mmHg (25-47); WHITE BLOOD COUNT 5.8 x10^3/uL (4.8-10.8)
[2022-09-04 16:21] LABS: VBG BASE EXCESS 0.3 mmol/L (-2 - +2); VBG OXYGEN SATURATION 84.3 % (60-80); VBG TOTAL CO2 26.4 mmol/L (24-29)
[2022-09-04] MEDS ORDERED: KETAMINE 500 MG/10 ML VIAL IVP STA (16:24)
[2022-09-04] MEDS ORDERED: BUDESONIDE 0.5 MG/2 ML NEB INH STA (16:24)
[2022-09-04] MEDS ORDERED: LEVALBUTEROL 1.25 MG/3 ML NEB INH STA ×2 (16:24→20:20)
[2022-09-04] MEDS ORDERED: KETOROLAC 15 MG/ML VIAL IVP STA (16:28)
[2022-09-04 16:29] LABS: ALBUMIN 4.7 g/dL (3.2-5.5); ALBUMIN/GLOBULIN RATIO 1.5 (1.0-2.2); BILIRUBIN,TOTAL 0.8 mg/dL (0.2-1.0); CALCIUM 9.9 mg/dL (8.5-10.3); CREATININE 0.9 mg/dL (0.4-1.0); MAGNESIUM 2.4 mg/dL (1.7-2.8); PHOSPHORUS 2.7 mg/dL (2.5-4.6); POTASSIUM 3.5 mmol/L (3.5-5.0); TOTAL PROTEIN 7.9 g/dL (6.7-8.2)
--- NOTE | 2022-09-04 16:42 | XRAY Report ---
PROCEDURE: Chest 1 View X-Ray INDICATIONS: dysppnea TECHNIQUE: One view of the chest was acquired. COMPARISON: 07/13/2017 FINDINGS: Surgical changes and devices: None. Lungs and pleura: No pleural effusions or pneumothorax. Mild bilateral perihilar and basilar reticul onodular density. Mediastinum: Mediastinal contours appear normal. Heart size is normal. Bones and chest wall: No suspicious bony lesions. Overlying soft tissues appear unremarkable. IMPRESSION: Mild atypical pneumonia. Reviewed by: Millicent Talamantes MD on 09/04/2022 4:40 PM PST Approved by: Millicent Talamantes MD on 09/04/2022 4:40 PM PST Station ID: [id number]
[2022-09-04] MEDS ORDERED: LORazepam 2 MG/ML VIAL IVP STA (16:56)
[2022-09-04 17:26] LABS: B. PARAPERTUSSIS- RESP PCR PAN NOT DETECTED; B. PERTUSSIS- RESP PCR PANEL NOT DETECTED; C. PNEUMONIAE- RESP PCR PANEL NOT DETECTED; CORONAVIRUS 229E-RESP PCR NOT DETECTED; CORONAVIRUS HKU1-RESP PCR NOT DETECTED; CORONAVIRUS NL63-RESP PCR NOT DETECTED; CORONAVIRUS OC43-RESP PCR NOT DETECTED; HUMAN METAPNEUMOVIRUS NOT DETECTED; INFLUENZA A H1 2009- RESP PCR DETECTED; INFLUENZA B - RESP PCR PANEL NOT DETECTED; M. PNEUMONIAE- RESP PCR PANEL NOT DETECTED; PARAINFLUENZA VIRUS 1 NOT DETECTED; PARAINFLUENZA VIRUS 2 NOT DETECTED; PARAINFLUENZA VIRUS 3 NOT DETECTED; PARAINFLUENZA VIRUS 4 NOT DETECTED; RHINOVIRUS/ENTEROVIRUS NOT DETECTED; RSV- RESP PCR PANEL NOT DETECTED; SARS-CoV-2 -RESP PCR PANEL NOT DETECTED
[2022-09-04] MEDS: AZITHROMYCIN INJ 500 MG in SODIUM CHLORIDE 0.9% 250 ML IV STA ×2 (17:34→17:35)
[2022-09-04] MEDS ORDERED: OSELTAMIVIR 75 MG CAPSULE PO STA (18:12)
[2022-09-04] MEDS ORDERED: LEVALBUTEROL 1.25 MG/3 ML NEB INH PRN (19:22)
[2022-09-04] MEDS: IPRATROPIUM/ALBUTEROL 3 ML NEB INH PRN ×2 (19:40→20:20)
[2022-09-04] MEDS: OSELTAMIVIR 75 MG CAPSULE PO SCH (21:07)
[2022-09-04] MEDS: DOXYCYCLINE 100 MG TABLET PO SCH (21:07)
[2022-09-04] MEDS: methylPREDNISolone SUCCINATE 40 MG/ML VIAL IVP SCH (21:08)
[2022-09-05] MEDS: ACETAMINOPHEN 500 MG TABLET PO PRN ×2 (01:29→09:24)
[2022-09-05] MEDS ORDERED: KETOROLAC 30 MG/ML VIAL IVP STA (02:14)
[2022-09-05] MEDS: IPRATROPIUM/ALBUTEROL 3 ML NEB INH PRN (02:30)
[2022-09-05 05:57] LABS: BASOPHILS % (AUTO) 0.2 %; HCT - HEMATOCRIT 41.5 % (37.0-47.0); HGB - HEMOGLOBIN 13.8 g/dL (12.0-16.0); LYMPHOCYTES # (AUTO) 0.2 10^3/uL (1.5-3.5); LYMPHOCYTES % (AUTO) 2.7 %; MEAN CORPUSCULAR HEMOGLOBIN 33.9 pg (27.0-31.0); MEAN CORPUSCULAR HGB CONC 33.3 g/dL (32.0-36.0); MEAN PLATELET VOLUME 9.9 fL (7.9-10.8); MONOCYTES # (AUTO) 0.2 10^3/uL (0.0-1.0); MONOCYTES % (AUTO) 2.3 %; NEUTROPHILS # (AUTO) 6.2 10^3/uL (1.5-6.6); NEUTROPHILS % (AUTO) 94.5 %; PLT - PLATELET COUNT 128 10^3/uL (130-450); RED BLOOD COUNT 4.07 10^6/uL (4.20-5.40); RED CELL DISTRIBUTION WIDTH 12.7 % (12.0-15.0); WHITE BLOOD COUNT 6.6 x10^3/uL (4.8-10.8)
[2022-09-05 06:04] LABS: CALCIUM 9.1 mg/dL (8.5-10.3); CREATININE 0.7 mg/dL (0.4-1.0)
[2022-09-05] MEDS: PANTOPRAZOLE 40 MG TABLET PO SCH (07:37)
[2022-09-05] MEDS: DOXYCYCLINE 100 MG TABLET PO SCH ×2 (09:24→20:04)
[2022-09-05] MEDS: methylPREDNISolone SUCCINATE 40 MG/ML VIAL IVP SCH (09:24)
[2022-09-05] MEDS: OSELTAMIVIR 75 MG CAPSULE PO SCH ×2 (09:24→20:04)
--- NOTE | 2022-09-05 09:29 | ED Physician Documentation ---
ED Addendum - Addendum Addendum: 09/05/22 09:26 The patient is able to talk in complete sentences. She states she is feeling the pressure of the BiPAP mask on her forehead and feels that it is a bit annoying but does feel it provides her good aeration. She has continued overnight with it. They had brief periods with her off of it to use the commode and she did desaturate to the mid 80s percent. However she feels she is breathing easier now this morning. She would like to try again without the BiPAP. We will give another neb treatment and then have respiratory try her on facemask or high flow nasal cannula instead. Her saturations are 95 to 96% on the BiPAP. She continues with the neb treatments frequently and is getting IV antibiotic's as well as steroids. She did receive a nebulized steroid last evening as well. She is positive for influenza A and is getting oseltamivir. Timed update: Subsequently we did have the patient off of her BiPAP and on nasal cannula only. She was saturating approximately 88 to 91% on 2 to 3 L. She was doing a little bit better on 6 L oximeter to her her high flow nasal cannula. At this point she would like to stay off the BiPAP if she can though is not adverse to it if need be. She is saturating 91 to 92% on the 6 L and we will watch and see how she does. There is still no beds coming available on the MedSurg unit or ICU so she is maintaining her continuing her admission here in the ER. Assessment: Acute exacerbation of asthma with hypoxia and respiratory distress 2. Influenza A pneumonia
[2022-09-05] MEDS ORDERED: SODIUM CHLORIDE FLUSH 0.9% 10 ML SYRINGE IVP PRN (15:53)
[2022-09-05] MEDS ORDERED: ONDANSETRON 4 MG/2 ML VIAL IVP PRN (15:53)
[2022-09-05] MEDS ORDERED: oxyCODONE 5 MG TABLET PO PRN (15:53)
[2022-09-05] MEDS ORDERED: ACETAMINOPHEN 325 MG TABLET PO PRN (15:53)
[2022-09-05] MEDS ORDERED: ONDANSETRON ODT 4 MG TABLET TL PRN (15:53)
[2022-09-05] MEDS ORDERED: IPRATROPIUM/ALBUTEROL 3 ML NEB INH PRN (15:56)
[2022-09-05] MEDS ORDERED: SODIUM CHLORIDE 0.9% 1,000 ML IV SCH (16:00)
[2022-09-05] MEDS ORDERED: ALBUTEROL NEB 2.5 MG/3 ML INH PRN (16:19)
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
[2022-09-05] MEDS: SODIUM CHLORIDE FLUSH 0.9% 10 ML SYRINGE IVP SCH ×2 (17:03→23:54)
[2022-09-05] MEDS: methylPREDNISolone 4 MG TABLET PO SCH (17:04)
[2022-09-05] MEDS: IPRATROPIUM/ALBUTEROL 3 ML NEB INH SCH (18:13)
[2022-09-05] MEDS: lisinopriL 20 MG TABLET PO SCH (20:04)
[2022-09-05] MEDS: FORMOTEROL FUMARATE NEB 20 MCG/2 ML INH SCH (23:27)
[2022-09-06] MEDS: IPRATROPIUM/ALBUTEROL 3 ML NEB INH PRN (03:20)
[2022-09-06] MEDS: FORMOTEROL FUMARATE NEB 20 MCG/2 ML INH SCH (03:20)
[2022-09-06] MEDS: PANTOPRAZOLE 40 MG TABLET PO SCH (04:49)
[2022-09-06] MEDS ORDERED: BUDESONIDE 0.5 MG/2 ML NEB INH SCH (07:00)
[2022-09-06] MEDS: IPRATROPIUM/ALBUTEROL 3 ML NEB INH SCH ×2 (07:17→11:13)
[2022-09-06] MEDS: methylPREDNISolone 4 MG TABLET PO SCH (08:42)
[2022-09-06] MEDS: DOXYCYCLINE 100 MG TABLET PO SCH (08:42)
[2022-09-06] MEDS: SODIUM CHLORIDE FLUSH 0.9% 10 ML SYRINGE IVP SCH (08:42)
[2022-09-06] MEDS: OSELTAMIVIR 75 MG CAPSULE PO SCH (08:42)
[2022-09-06] MEDS: lisinopriL 20 MG TABLET PO SCH (08:42)
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
[2022-09-06 12:43] VITALS: BP 146/95
--- NOTE | 2022-09-06 12:45 | PHARMACY PROGRESS NOTE ---
- Best Possible Medication History Admit Date and Time: 09/05/22 1553 Processed by: Pharmacy Medication History completed: Yes Patient Interview: Completed Secondary Source(s): Prescription bottles (uses Salbutamol 100 ug from [place] as albuterol inhaler) As the person ultimately responsible for medication therapy, providers are able to order a medication from an existing home medication list in [facility] via the "Reconcile Routine" prior to Confirmation of that medication by other sales support worker. Such practice is discouraged except when the physician, in their clinical judgment, deems that a medical need exists for a medication without regard to previous use.
== END 2022-09-06 12:52 | disposition home or self-care (01) ==
LOC: ED 13:39 → MS3 09-05 15:53
PROVIDERS: ADMIT Specialist; ATTEND Specialist
DX: J96.01 Acute respiratory failure with hypoxia (principal); J10.00 Influenza due to other identified influenza virus with unspecified type of pneumonia; J45.52 Severe persistent asthma with status asthmaticus; K21.9 Gastro-esophageal reflux disease without esophagitis; F41.9 Anxiety disorder, unspecified; E66.9 Obesity, unspecified; Z68.34 Body mass index [BMI] 34.0-34.9, adult; T48.6X6A Underdosing of antiasthmatics, initial encounter; Z91.138 Patient's unintentional underdosing of medication regimen for other reason; Z20.822 Contact with and (suspected) exposure to COVID-19
CPT/HCPCS: 36415; 71045; 80048; 80053; 82803; 83735; 84100; 85025; 87633; 93005; 94640; 94660; 96365; 96366; 96367; 96375; 96376; 99285; 99291; A9270; G0378; J2060; J7509; J7626

== ENCOUNTER 2023-02-15 07:25 | Outpatient (CLI) | payer OTHER ==
[2023-02-15 14:42] LABS: BASOPHILS % (AUTO) 1.3 %; EOSINOPHILS # (AUTO) 0.1 10^3/uL (0.0-0.7); EOSINOPHILS % (AUTO) 2.6 %; HCT - HEMATOCRIT 43.7 % (37.0-47.0); HGB - HEMOGLOBIN 14.2 g/dL (12.0-16.0); LYMPHOCYTES # (AUTO) 0.8 10^3/uL (1.5-3.5); LYMPHOCYTES % (AUTO) 26.8 %; MEAN CORPUSCULAR HEMOGLOBIN 32.6 pg (27.0-31.0); MEAN CORPUSCULAR HGB CONC 32.5 g/dL (32.0-36.0); MEAN CORPUSCULAR VOLUME 100.5 fL (81.0-99.0); MEAN PLATELET VOLUME 10.4 fL (7.9-10.8); MONOCYTES # (AUTO) 0.2 10^3/uL (0.0-1.0); MONOCYTES % (AUTO) 7.7 %; NEUTROPHILS # (AUTO) 1.9 10^3/uL (1.5-6.6); NEUTROPHILS % (AUTO) 61.3 %; PLT - PLATELET COUNT 118 10^3/uL (130-450); RED BLOOD COUNT 4.35 10^6/uL (4.20-5.40); RED CELL DISTRIBUTION WIDTH 13.2 % (12.0-15.0); WHITE BLOOD COUNT 3.1 x10^3/uL (4.8-10.8)
[2023-02-15 15:49] LABS: THYROID STIMULATING HORMONE 1.92 uIU/mL (0.34-5.60)
[2023-02-15 15:58] LABS: ALBUMIN/GLOBULIN RATIO 1.7 (1.0-2.2); ALKALINE PHOSPHATASE 53 IU/L (42-121); ALT ALANINE AMINOTRANSFERASE 23 IU/L (10-60); AST ASPARTATE AMINOTRANSFERASE 25 IU/L (10-42); BILIRUBIN,TOTAL 0.8 mg/dL (0.2-1.0); BUN - BLOOD UREA NITROGEN 13 mg/dL (6-20); CALCIUM 9.1 mg/dL (8.5-10.3); CARBON DIOXIDE - CO2 28 mmol/L (21-32); CHLORIDE 107 mmol/L (101-111); CHOL/HDL RATIO 3.4 (<4.4); CHOLESTEROL 256 mg/dL; CREATININE 0.7 mg/dL (0.4-1.0); GFR - MDRD 85 (>89); GLUCOSE 111 mg/dL (70-100); HDL CHOLESTEROL 76 mg/dL; LDL CHOLESTEROL,CALCULATED 165 mg/dL; LDL/HDL RATIO 2.2 (<4.4); SODIUM 141 mmol/L (135-145); TOTAL PROTEIN 6.3 g/dL (6.7-8.2); TRIGLYCERIDES 74 mg/dL; VLDL CHOLESTEROL 15 mg/dL
== END 2023-02-15 07:26 | disposition home or self-care (01) ==
LOC: LAB.S 07:25
PROVIDERS: ATTEND Internal Medicine
DX: I10 Essential (primary) hypertension (principal); Z13.220 Encounter for screening for lipoid disorders; Z13.29 Encounter for screening for other suspected endocrine disorder
CPT/HCPCS: 36415; 80053; 80061; 83721; 84443; 85025

== ENCOUNTER 2023-06-06 07:24 | Outpatient (CLI) | payer OTHER ==
[2023-06-06 15:14] LABS: EOSINOPHILS # (AUTO) 0.1 10^3/uL (0.0-0.7); EOSINOPHILS % (AUTO) 1.9 %; HCT - HEMATOCRIT 43.4 % (37.0-47.0); HGB - HEMOGLOBIN 13.9 g/dL (12.0-16.0); LYMPHOCYTES # (AUTO) 0.8 10^3/uL (1.5-3.5); LYMPHOCYTES % (AUTO) 24.8 %; MEAN CORPUSCULAR HEMOGLOBIN 32.9 pg (27.0-31.0); MEAN CORPUSCULAR VOLUME 102.6 fL (81.0-99.0); MEAN PLATELET VOLUME 10.3 fL (7.9-10.8); MONOCYTES # (AUTO) 0.3 10^3/uL (0.0-1.0); MONOCYTES % (AUTO) 8.4 %; NEUTROPHILS % (AUTO) 63.6 %; PLT - PLATELET COUNT 124 10^3/uL (130-450); RED BLOOD COUNT 4.23 10^6/uL (4.20-5.40); RED CELL DISTRIBUTION WIDTH 13.6 % (12.0-15.0); WHITE BLOOD COUNT 3.1 x10^3/uL (4.8-10.8)
[2023-06-06 15:45] LABS: ALBUMIN 4.2 g/dL (3.2-5.5); ALBUMIN/GLOBULIN RATIO 2.2 (1.0-2.2); ALKALINE PHOSPHATASE 59 IU/L (42-121); ALT ALANINE AMINOTRANSFERASE 23 IU/L (10-60); AST ASPARTATE AMINOTRANSFERASE 19 IU/L (10-42); BILIRUBIN,TOTAL 0.8 mg/dL (0.2-1.0); BUN - BLOOD UREA NITROGEN 15 mg/dL (6-20); CALCIUM 9.8 mg/dL (8.5-10.3); CARBON DIOXIDE - CO2 32 mmol/L (21-32); CHLORIDE 106 mmol/L (101-111); CHOL/HDL RATIO 2.9 (<4.4); CHOLESTEROL 261 mg/dL; CREATININE 0.7 mg/dL (0.6-1.3); GFR - MDRD 85 (>89); GLUCOSE 104 mg/dL (74-104); HDL CHOLESTEROL 89 mg/dL; LDL CHOLESTEROL,CALCULATED 155 mg/dL; LDL/HDL RATIO 1.7 (<4.4); SODIUM 143 mmol/L (135-145); TOTAL PROTEIN 6.1 g/dL (6.4-8.9); TRIGLYCERIDES 84 mg/dL (48-352); VLDL CHOLESTEROL 17 mg/dL
[2023-06-06 16:06] LABS: THYROID STIMULATING HORMONE 2.63 uIU/mL (0.34-5.60)
== END 2023-06-06 07:25 | disposition home or self-care (01) ==
LOC: LAB.S 07:24
PROVIDERS: ATTEND Internal Medicine
DX: I10 Essential (primary) hypertension (principal); Z13.220 Encounter for screening for lipoid disorders; Z13.29 Encounter for screening for other suspected endocrine disorder
CPT/HCPCS: 36415; 80053; 80061; 83721; 84443; 85025

== ENCOUNTER 2023-11-01 08:18 | Outpatient (CLI) | payer OTHER ==
[2023-11-01 14:52] LABS: BASOPHILS % (AUTO) 0.9 %; EOSINOPHILS # (AUTO) 0.1 10^3/uL (0.0-0.7); EOSINOPHILS % (AUTO) 1.8 %; HGB - HEMOGLOBIN 13.5 g/dL (12.0-16.0); LYMPHOCYTES # (AUTO) 1.1 10^3/uL (1.5-3.5); LYMPHOCYTES % (AUTO) 31.3 %; MEAN CORPUSCULAR HGB CONC 32.1 g/dL (32.0-36.0); MEAN CORPUSCULAR VOLUME 99.5 fL (81.0-99.0); MEAN PLATELET VOLUME 10.5 fL (7.9-10.8); MONOCYTES # (AUTO) 0.2 10^3/uL (0.0-1.0); MONOCYTES % (AUTO) 7.2 %; NEUTROPHILS % (AUTO) 58.5 %; PLT - PLATELET COUNT 103 10^3/uL (130-450); RED BLOOD COUNT 4.22 10^6/uL (4.20-5.40); RED CELL DISTRIBUTION WIDTH 12.5 % (12.0-15.0); WHITE BLOOD COUNT 3.4 x10^3/uL (4.8-10.8)
[2023-11-01 16:08] LABS: FERRITIN 263.9 ng/mL (11.0-306.8)
== END 2023-11-01 08:19 | disposition home or self-care (01) ==
LOC: LAB.S 08:18
PROVIDERS: ATTEND Internal Medicine
DX: D75.89 Other specified diseases of blood and blood-forming organs (principal); D69.6 Thrombocytopenia, unspecified
CPT/HCPCS: 36415; 82607; 82728; 82746; 83540; 84466; 85025

== ENCOUNTER 2024-01-10 08:00 | Outpatient (CLI) | payer OTHER ==
--- NOTE | 2024-01-10 15:58 | XRAY Report ---
PROCEDURE: Foot 3+V RT INDICATIONS: RIGHT FOOT CONTUSION TECHNIQUE: 3 views of the foot were acquired. COMPARISON: None. FINDINGS: Bones: No acute fractures or dislocations. No suspicious bony lesions. Prominent degenerative mccloud ges are seen at the naviculocuneiform and talonavicular joints. Posterior calcaneal enthesophyte is p resent. Scattered degenerative changes are seen at the phalangeal joint of the toes. There is general ized osteopenia. Soft tissues: Nonspecific soft tissue edema at the dorsum of the foot. IMPRESSION: 1.No acute osseous abnormality. If there is clinical concern or persistent symptoms, additional imagi ng such as repeat radiographs or advanced imaging (e.g. CT, MRI) may be helpful for further evaluatio n. 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 3.Calcaneal enthesopathy Reviewed by: Ugo Mclean MD on 01/10/2024 3:57 PM PDT Approved by: Ugo Mclean MD on 01/10/2024 3:57 PM PDT Station ID: [id number]
== END 2024-01-10 23:59 | disposition home or self-care (01) ==
LOC: DI.S 08:00
PROVIDERS: ATTEND Emergency Medicine
DX: S90.31XA Contusion of right foot, initial encounter (principal); M19.071 Primary osteoarthritis, right ankle and foot; M77.31 Calcaneal spur, right foot